=== PATIENT | male | born 1980 | race Caucasian/White ===

== ENCOUNTER 2019-03-25 22:06 | Emergency (ER) | payer SELFPAY ==
[~2019-03-25] VITALS: Ht 175.3 cm; Wt 59.1 kg
[2019-03-26 00:03] VITALS: BP 103/70
== END 2019-03-26 00:31 | disposition home or self-care (01) ==
LOC: EMS 22:08
DX: S06.0X0A Concussion without loss of consciousness, initial encounter (principal); F17.210 Nicotine dependence, cigarettes, uncomplicated; Y04.0XXA Assault by unarmed brawl or fight, initial encounter; Y93.89 Activity, other specified; Y92.89 Other specified places as the place of occurrence of the external cause; Y99.8 Other external cause status
CPT/HCPCS: 70450; 99406